=== PATIENT | male | born 1935 | race Caucasian/White ===

== ENCOUNTER → 2018-04-30 | Outpatient (CLI) | payer OTHER ==
[~2018-04-30] MED LIST: IOHEXOL 350mgI/ML (OMNIPAQUE) 150 ML BTL IV ONE
== END ==
LOC: FIMAGING 13:59
PROVIDERS: ATTEND Internal Medicine Infectious Disease
DX: I73.9 Peripheral vascular disease, unspecified (principal); I70.209 Unspecified atherosclerosis of native arteries of extremities, unspecified extremity
CPT/HCPCS: 75635; Q9967; 82565-PO

== ENCOUNTER 2018-05-15 08:11 | Inpatient (IN) | payer OTHER ==
[2018-05-15] MEDS ORDERED: ONDANSETRON 4 MG/2 ML VIAL IVP PRN (12:51)
[2018-05-15] MEDS ORDERED: ACETAMINOPHEN 325 MG TAB PO PRN (12:51)
[2018-05-15] MEDS ORDERED: ONDANSETRON DISINTEGRATING 4 MG TAB PO PRN (12:51)
--- NOTE | 2018-05-15 14:17 | PDGENHP ---
History and Physical - Chief Complaint Peripheral vascular disease, RLE swelling and pain - History of Present Illness HPI: This is a 82 y/o male with history of CABG x 2, stents x 9, atrial fibrillation, ischemic cardiomyopathy, pacemaker and peripheral vascular disease presenting from Dr. Shaun Holman office with months worth of right lower extremity leg swelling and pain more so than left lower extremity. He was seen mid-April by wound MD Dr. Holden Bravo for this issue: RLE painful to elevate and difficult to ambulate. Doppler of arteries on the right side indicate monophasic pulse likely proximal obstruction, LAUREN abnormal BLE 0.72 and 0.74, CTA with runoff reveal 70% stenosis in the proximal left external iliac artery, 60% stenosis proximal SFA with patent trifurcation vessels to the ankle and left 50% mid SFA stenosis, occlusion of the anterior tibilar artery and probable occlusion of the mid-posterior tibial artery with reconstitution distally. He denies chest pains, palpitations, nausea, vomiting, fevers, chills, diarrhea. Endorses 6-week productive cough, sarmiento sputum. Recently treated with azithromycin but continues to experience productive cough. He is being admitted for observation and upcoming angioplasty procedure with Dr. Wang. Past Medical History 1. Atrial fibrillation 2. CAD s/p PCI 3. Hyperlipidemia 4. Ischemic cardiomyopathy 5. Peripheral vascular disease 6. Severe neuropathy 7. Myocardial infarctions (1987, 1994) Past Surgical History 1. Pacemaker 2. s/p CABG x 2, S/p PCI x 9 3. MOHS melanoma right ear Social 1. Lives independently at [facility]. 2. Denies illicit drug use. Drinks 2 beers/day. Smokes 5 cigarettes/day. History Information - Allergies/Home Medication List Allergies/Adverse Reactions: duloxetine HCl [From Cymbalta] Allergy (Mild, Verified 06/10/10 14:21) lansoprazole [From Prevacid] Allergy (Mild, Verified 06/10/10 14:21) Other-Enter Comments cephalexin [Cephalexin] Allergy (Verified 06/10/10 14:21) clindamycin Allergy (Verified 06/10/10 14:21) dabigatran etexilate mesylate [From Pradaxa] Allergy (Verified 06/17/10 13:37) CP,H/A,LEG SWELLING fenofibrate nanocrystallized [From Tricor] Allergy (Verified 06/10/10 14:25) Other-Enter Comments fenofibrate,micronized [From Tricor] Allergy (Verified 06/10/10 14:25) Other-Enter Comments iron [Iron] Allergy (Verified 04/27/10 22:41) lovastatin [From Mevacor] Allergy (Verified 06/10/10 14:25) Other-Enter Comments niacin [Niacin] Allergy (Verified 06/10/10 14:24) Ywsnlyp-Zkd-Nxg Reductase Inhibitor Allergy (Verified 06/10/10 14:24) Other-Enter Comments warfarin [Warfarin] Allergy (Verified 06/10/10 14:24) Home Medications: Clopidogrel Bisulfate [Plavix (*)] 75 mg PO DAILY 09/10/12 [Last Taken 05/15/18] Herbals/Supplements -Info Only 1 each PO HS 09/10/12 [Last Taken Unknown] Albuterol [Proventil Inhaler HFA (*)] 3 puffs IH Q4-6PRN PRN 05/15/18 [Last Taken Unknown] Ascorbic Acid [Vitamin C 500 mg (*)] 500 mg PO DAILY 05/15/18 [Last Taken ] Aspirin [Aspirin 81mg (*)] 81 mg PO BID 05/15/18 [Last Taken 05/15/18] Azithromycin 250 mg PO DAILY 05/15/18 [Last Taken 05/15/18] Bumetanide [Bumex (*)] 1 mg PO DAILY 05/15/18 [Last Taken 05/15/18] Calcium Carb W/Vit D [Calcium Carb W/Vit D 500/200 (*)] 1,000 mg PO DAILY [Last Taken 05/15/18] Cyanocobalamin [Vitamin B12 (*)] 500 mcg PO DAILY 05/15/18 [Last Taken 05/15/18] Metoprolol Succinate Xr [Toprol Xl 25 mg (*)] 25 mg PO DAILY 05/15/18 [Last Taken 05/15/18] Multivitamins [Multivitamin (*)] 1 each PO DAILY 05/15/18 [Last Taken 05/15/18] I have personally reviewed and updated: family history, medical history, social history, surgical history Past Medical History: See HPI list - Surgical History Additional surgical history: See HPI list - Family History Additional family history: Brothers and sisters: 2 of a stroke, 5 have heart disease - Social History Smoking Status: Current every day smoker Alcohol Use: Occasionally Drug Use: None Review of Systems Review of Systems: ROS: 10pt was reviewed & negative except for what was stated in HPI & below Physical Exam Physical Exam: Lab data pending. Case discussed with admitting physician, Dr. Judson Adam. Temp Pulse Resp BP Pulse Ox 36.6 C 70 16 116/63 92 05/15/18 12:59 05/15/18 12:59 05/15/18 12:59 05/15/18 12:59 05/15/18 12:59 Constitutional: no apparent distress, appears nourished, not in pain Eyes: PERRL, anicteric sclera, EOMI Ears, Nose, Mouth, Throat: moist mucous membranes, hearing normal, ears appear normal, no oral mucosal ulcers Cardiovascular: irregularly irregular, edema Respiratory: reduced air movement Gastrointestinal: normoactive bowel sounds, soft, non-tender abdomen, other ( Right sided protuding hernia; fat-filled) Genitourinary: no bladder fullness, no bladder tenderness Skin: abrasion, erythema (RLE; odorous), rash Musculoskeletal: pain with ROM (RLE) Neurologic: AAOx3, numbness, CN II-XII Intact Psychiatric: interacting appropriately, not anxious, not encephalopathic, thought process linear Lymph, Heme, Immunologic: no cervical LAD, no supraclavicular LAD Lab Data & Imaging Review 05/15/18 15:10 05/15/18 15:10 Assessment & Plan Plan: This is a 82 y/o male with history of ischemic cardiomyopathy, a-fib, pacemaker , CAD s/p CABG x 2 and [address] Shaun Holman office with severe peripheral vascular disease ailing his right lower extremity more so than his left lower extremity. He is to have an angioplasty by Dr. Wang. 1. Peripheral vascular disease -Wound care consult -I spoke to Dr. Wang; possible angioplasty tomorrow - NPO tonight at midnight -Refuses statins d/t poor reactions -INR: 1.20 2. A-Fib -He refuses AC d/t poor reactions; continue ASA and Plavix 3. CHF: Last ECHO July 2017 performed at [facility] revealed moderate pulmonary HTN, mild-moderate TR, moderate MR, LAE, KENNETH, estimated RVSP 47 mmHg, EF 40-45%. -On metoprolol, bumex. Recommend HUGO inhibitor. Considering initiating after angioplasty and renally cleared contrast to reduce toxicity -BUN/Cr: 17.1 4. Cellulitis: Denies hx of MRSA. -Risk factor PVD and open wound. -Initiated Clindamycin, will be on tele and pulse ox monitoring d/t possible allergy. He cannot remember his allergy. In records, it states angina and diarrhea. -Wound care consult 5. Cough: on albuterol. Continue to monitor. Possible smoker's cough. Afebrile , mild leukocytosis (10.13) however he does have cellulitis. Diet: Cardiac, NPO at midnight tonight VTE ppx: ASA, Plavix, Lovenox subq Code: DNR Dispo: Admit to obs
[2018-05-15] MEDS ORDERED: ALBUTEROL 60 PUFFS/8 GM MDI IH PRN (14:20)
[2018-05-15 15:38] LABS: PLATELET COUNT 289 10^3/uL (150-400)
[2018-05-15 15:42] LABS: INR 1.2 (0.83-1.16); PROTIME(PATIENT) 15.4 SEC (12.0-15.0)
--- NOTE | 2018-05-15 15:54 | HOSPPROG ---
Hospitalist Progress Note Assessment/Plan: Patient seen, examined and discussed with Suma Looney. I agree with her H&P. Admitted from Dr Holman' office for PAD needing angioplasty. He tried to clip the nail on his L small toe and caused some bleeding. RLE with erythema extending to upper cates, desquamated, markedly scaly foot LLE with blood over foot A/P: 1. Severe PAD with cellulitis - start clinda (place on tele and pulseOx given possible allergy) - needs angioplasty - possible tomorrow 2. antibiotic allergies - seems like a true allergy to Keflex; does not recall clinda allergy 3. CAD s/p CABG, PCI; ischemic cardiomyopathy with recovered EF - cont metop, not on statin or lisinopril 4. a-fib - declined AC in the past; cont asa/plavix, metop Objective: Vital Signs Temp Pulse Resp BP Pulse Ox 36.6 C 70 16 116/63 92 05/15/18 12:59 05/15/18 12:59 05/15/18 12:59 05/15/18 12:59 05/15/18 12:59 ICD10 Worksheet Patient Problems: Problems Problem Status Onset CAD - Coronary arteriosclerosis Active Hyperlipidemia Active Smoker Active Bradycardia Active Implantation of intravenous dual chamber permanent pacemaker Active Atrial fibrillation and flutter Active
[2018-05-15] MEDS: CLINDAMYCIN 600 MG/DEXTROSE 50 ML IV SCH (17:48)
--- NOTE | 2018-05-15 18:06 | GHP ---
[f rep st] HISTORY AND PHYSICAL DATE OF ADMISSION: 05/15/2018 CHIEF COMPLAINT: Bilateral lower extremity wounds. HISTORY OF PRESENT ILLNESS: The patient is an 82-year-old male with a history of peripheral vascular disease, who presented to our office approximately 1 week ago for complaints of worsening wounds on his bilateral lower extremities, right worse than left. He was sent for ABIs, which were abnormal at 0.72 and 0.74. He also underwent a CT angio abdomen with runoff that revealed 70% stenosis in the proximal left external iliac artery and a 60% stenosis of the proximal SFA, with patent trifurcation vessels at the ankle. Both of these arteries are amenable to angioplasty. The patient reports pain in his right lower extremity that makes it difficult to ambulate. He denies fever, chills, chest pains, and heart palpitations. Of note, the patient was recently treated for pneumonia and is on day 5 of azithromycin. He denies a fever, but endorses a persistent productive cough. PAST MEDICAL HISTORY: History of myocardial infarctions, peripheral vascular disease, neuropathy, diabetes, ischemic cardiomyopathy, hyperlipidemia, coronary artery disease, atrial fibrillation. 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 SOCIAL HISTORY: The patient is a current smoker and drinks 2 alcoholic beverages per day. He denies recreational drug use. He lives independently at [facility]. REVIEW OF SYSTEMS: Ten-point review of systems was performed and is negative, aside from what is in the HPI. MEDICATIONS: Plavix, albuterol inhaler, ascorbic acid, aspirin 81 mg, azithromycin 250 mg, Bumex, calcium carbonate with vitamin D, vitamin B12, metoprolol succinate XR, multivitamin. ALLERGIES: Cymbalta, Prevacid, Keflex, clindamycin, Pradaxa, Tricor, lovastatin , niacin, Coumadin. PHYSICAL EXAM: GENERAL: Well-appearing, well-dressed elderly male in no acute distress. HEENT: Normocephalic, atraumatic. No gross hearing deficits. Mucous membranes are moist, PERRLA, no scleral icterus. CARDIOVASCULAR: Irregularly irregular, bilateral lower extremity edema. RESPIRATORY: Crackles at bilateral bases, clear otherwise. ABDOMEN: Soft, nontender, nondistended. Normoactive bowel sounds. EXTREMITIES: Right lower extremity appears with 3+ edema. It is erythematous extending from foot up to the upper cates. Multiple areas of desquamation, faint pedal pulses. Left lower extremity: 1+ edema. Mildly erythematous in the foot. Faint pedal pulses. Left great toe appears with a scab. NEUROLOGIC: Alert and oriented x3. PSYCHIATRIC: Appropriate mood and affect. IMPRESSION AND PLAN: The patient is an 82-year-old male with severe peripheral vascular disease, with cellulitis in his right lower extremity and extensive wounds. The plan is to admit him for possible angioplasty of his right SFA tomorrow in Interventional Radiology. He is n.p.o. He may continue his aspirin and Plavix until the time of his procedure. Given his recent diagnosis of pneumonia and a persistent cough, there is a chance that his procedure will need to be delayed until he is healthier. At some point, he will also need an angioplasty of his left external iliac artery; however, it is unlikely that these procedures can happen at the same time. We will prioritize the right SFA , given the worsening wounds on the patient's right lower extremity. We have discussed all risks and options and the patient wishes to proceed with the plan. /[id number]/MODL MTDD
[2018-05-15] MEDS ORDERED: ENOXAPARIN 40 MG/0.4 ML SYR SC SCH ×2 (21:00)
[2018-05-15] MEDS: FISH OIL 1200 MG PO SCH (22:17)
[2018-05-15] MEDS: ASPIRIN 81 MG CHEWABLE TAB PO SCH (22:18)
[2018-05-15] MEDS: METOPROLOL SUCCINATE XR 25 MG TAB PO SCH (22:18)
[2018-05-16] MEDS: CLINDAMYCIN 600 MG/DEXTROSE 50 ML IV SCH ×4 (00:32→21:52)
--- NOTE | 2018-05-16 08:58 | HOSPPROG ---
Hospitalist Progress Note Assessment/Plan: # severe PAD with cellulitis - cont clinda D#2 - needs angioplasty - today by IR # antibiotic allergies - seems like a true allergy to Keflex; does not recall clinda allergy, but currently tolerating # chronic LE wounds - will need wound care and debridement, possibly bedside - cont diuretics # CAD s/p CABG, PCI; ischemic cardiomyopathy with recovered EF - cont metop, not on statin or lisinopril # a-fib - declined AC in the past - cont asa/plavix, metop Subjective: leg feels less swollen today Objective: Vital Signs Temp Pulse Resp BP Pulse Ox 36.9 C 71 18 108/56 L 93 05/16/18 07:26 05/16/18 07:26 05/16/18 07:26 05/16/18 07:26 05/16/18 07:26 Laboratory Results 05/16/18 05:30 05/16/18 05:30 05/15/18 05/16/18 05/17/18 05:59 05:59 05:59 Intake Total 780 Balance 780 PT 15.4 SEC (12.0-15.0) H 05/15/18 15:10 INR 1.20 (0.83-1.16) H 05/15/18 15:10 ECG reviewed CXR personally reviewed - Physical Exam Constitutional: no apparent distress, appears nourished Cardiovascular: regular rate and rhythym, systolic murmur, No irregularly irregular Respiratory: no respiratory distress, no rales or rhonchi, clear to auscultation Gastrointestinal: normoactive bowel sounds, soft, non-tender abdomen, no palpable masses Musculoskeletal: other (slightly improved erythema on R leg; s till some desquamation and scaling) ICD10 Worksheet Patient Problems: Problems Problem Status Onset CAD - Coronary arteriosclerosis Active Hyperlipidemia Active Smoker Active Bradycardia Active Implantation of intravenous dual chamber permanent pacemaker Active Atrial fibrillation and flutter Active
--- NOTE | 2018-05-16 09:04 | WOCRNPDOC ---
PANCHO Advanced Assessment Note - Skin Integrity Problem, Advanced Assess Right Lower Leg Dressing Type: Gauze, Kerlix Dressing Description: Clean/Dry, Intact Exudate Amount: None Integumentary Issue Intervention: Dressing Changed Fifi Wound Tissue: Erythema, Xerotic, Anhidrotic, Rubor (non dependent), Altered Sensitivity, Crusted, Hypertrophic, Lichenification Wound Bed Constitution: Granulation Tissue (80%), Adhered Slough (20%) Wound Edges: Attached, Irregular Site Odor: Slight Site Measurement - Head-to-Toe Length X Width X Depth (cm): [id number] Extremity Temperature: Warm (great toes on feet were cool) Peripheral Edema Location & Description: 4+ bilateral feet Skin Integrity Problem Comment: Patient admitted yesterday for extensive right lower extremity wounds and severe hyperkeratosis. He has an open area on the right gaiter area that is not very deep nor painful. His ankle and foot area covered with large chunks of dried skin that are thick and callous-like. There are multiple deep full thickness fissures spidering throughout. Plan is to keep gaiter wound with moist to dry dressing changes BID until post angioplasty. Once blood flow has been verified then the areas of hyperkeratosis may be addressed. Of note patient has a raised itchy red rash on his medial left knee that he reports is from using marijuana salve on his right foot that causes an "allergic" reaction a few months ago and has worsened over time. Wound care will follow. Dr. Holman and Heather Fairbanks GROUP PRACTICE PEDIATRICIAN in room. Ethan HAYDEN also in room for care.
[2018-05-16] MEDS ORDERED: MEPERIDINE 25 MG/ML SYR IVP PRN (11:05)
[2018-05-16] MEDS ORDERED: MIDAZOLAM 2 MG/2 ML VIAL IVP PRN (11:05)
[2018-05-16] MEDS ORDERED: NALOXONE HCL 0.4 MG/ML INJ IVP PRN ×2 (11:05→13:24)
[2018-05-16] MEDS ORDERED: FLUMAZENIL 0.5 MG/5 ML MDV IVP PRN (11:05)
[2018-05-16] MEDS ORDERED: fentaNYL 100 MCG/2 ML INJ IVP PRN ×2 (11:05→13:24)
[2018-05-16] MEDS ORDERED: HEPARIN 10,000 UNIT/10 ML MDV (1,000 UNIT/ML) IVP PRN (11:05)
[2018-05-16] MEDS ORDERED: PROTAMINE SULFATE 50 MG/5 ML VIAL IVP PRN (11:05)
[2018-05-16] MEDS ORDERED: ALTEPLASE 2 MG VIAL IVP PRN (11:05)
[2018-05-16] MEDS ORDERED: PROPOFOL 200 MG/20 ML VIAL ONE (11:09)
[2018-05-16] MEDS ORDERED: fentaNYL 100 MCG/2 ML INJ ONE (11:09)
[2018-05-16] MEDS ORDERED: LIDOCAINE 2% 100 MG/5 ML SYR ONE (11:10)
[2018-05-16] MEDS ORDERED: IOPAMIDOL (ISOVUE-300) 100 ML BTL ONE ×2 (11:11→13:43)
[2018-05-16] MEDS ORDERED: NS 1,000 ML IV SCH (11:15)
--- NOTE | 2018-05-16 11:17 | PDANEPAE ---
ANE Past Medical History - Pulmonary History Hx Oxygen in Use at Home: No Hx Sleep Apnea: Yes - Endocrine History Hx Diabetes: No - Chronic Pain History Chronic Pain: Yes ANE Review of Systems Review of Systems: ANE Patient History - Allergies Allergies/Adverse Reactions: duloxetine HCl [From Cymbalta] Allergy (Mild, Verified 06/10/10 14:21) lansoprazole [From Prevacid] Allergy (Mild, Verified 06/10/10 14:21) Other-Enter Comments cephalexin [Cephalexin] Allergy (Verified 06/10/10 14:21) clindamycin Allergy (Verified 06/10/10 14:21) dabigatran etexilate mesylate [From Pradaxa] Allergy (Verified 06/17/10 13:37) CP,H/A,LEG SWELLING fenofibrate nanocrystallized [From Tricor] Allergy (Verified 06/10/10 14:25) Other-Enter Comments fenofibrate,micronized [From Tricor] Allergy (Verified 06/10/10 14:25) Other-Enter Comments iron [Iron] Allergy (Verified 04/27/10 22:41) lovastatin [From Mevacor] Allergy (Verified 06/10/10 14:25) Other-Enter Comments niacin [Niacin] Allergy (Verified 06/10/10 14:24) Mkkekmh-Wqb-Kyz Reductase Inhibitor Allergy (Verified 06/10/10 14:24) Other-Enter Comments warfarin [Warfarin] Allergy (Verified 06/10/10 14:24) - Home Medications Home Medications: Clopidogrel Bisulfate [Plavix (*)] 75 mg PO DAILY 09/10/12 [Last Taken 05/15/18] Herbals/Supplements -Info Only 1 each PO HS 09/10/12 [Last Taken Unknown] Albuterol [Proventil Inhaler HFA (*)] 3 puffs IH Q4-6PRN PRN 05/15/18 [Last Taken Unknown] Ascorbic Acid [Vitamin C 500 mg (*)] 500 mg PO DAILY 05/15/18 [Last Taken ] Aspirin [Aspirin 81mg (*)] 81 mg PO BID 05/15/18 [Last Taken 05/15/18] Azithromycin 250 mg PO DAILY 05/15/18 [Last Taken 05/15/18] Bumetanide [Bumex (*)] 1 mg PO DAILY 05/15/18 [Last Taken 05/15/18] Calcium Carb W/Vit D [Calcium Carb W/Vit D 500/200 (*)] 1,000 mg PO DAILY [Last Taken 05/15/18] Cyanocobalamin [Vitamin B12 (*)] 500 mcg PO DAILY 05/15/18 [Last Taken 05/15/18] Metoprolol Succinate Xr [Toprol Xl 25 mg (*)] 25 mg PO HS 05/15/18 [Last Taken 05/15/18] Multivitamins [Multivitamin (*)] 1 each PO DAILY 05/15/18 [Last Taken 05/15/18] - Smoking Hx Smoking Status: Current every day smoker - Alcohol Use Alcohol Use: Occasionally ANE Labs/Vital Signs - Labs Result Diagrams: 05/16/18 05:30 05/16/18 05:30 - Vital Signs Blood Pressure: 108/56 Heart Rate: 71 Respiratory Rate: 18 O2 Sat (%): 93 Height: 170.18 cm Weight: 74.5 kg ANE Physical Exam - Airway Neck exam: decreased ROM Mallampati Score: Class 3 Mouth exam: dentures - Pulmonary Pulmonary: reduced air movement, inspiratory crackles - Cardiovascular Cardiovascular: other (paced) ANE Anesthesia Plan Anesthesia Plan: GA w LMA
--- NOTE | 2018-05-16 12:03 | SOAPPROG ---
SOAP Progress Note Assessment/Plan: Assessment: 82 y/o M admitted for bilateral lower extremity wounds Plan for R SFA angioplasty in IR today S: did not sleep well last night. No other complaints. O: Alert Afebrile VSS RRR No increased WOB RLE: 2+ edema present, dependent rubor, erythematous from upper cates to foot. Foot has extensive crusty lichenification LLE: 1+ edema, mildly erythematous Poor pedal pulses bilaterally 05/16/18 11:58 Objective: Vital Signs Temp Pulse Resp BP Pulse Ox 36.9 C 71 18 108/56 L 93 05/16/18 07:26 05/16/18 11:16 05/16/18 11:16 05/16/18 11:16 05/16/18 11:16 Laboratory Results 05/16/18 05:30 05/16/18 05:30 05/15/18 05/16/18 05/17/18 05:59 05:59 05:59 Intake Total 780 Balance 780 PT 15.4 SEC (12.0-15.0) H 05/15/18 15:10 INR 1.20 (0.83-1.16) H 05/15/18 15:10 ICD10 Worksheet Patient Problems: Problems Problem Status Onset Atrial fibrillation and flutter Active Bradycardia Active CAD - Coronary arteriosclerosis Active Hyperlipidemia Active Implantation of intravenous dual chamber permanent pacemaker Active Smoker Active
[2018-05-16] MEDS ORDERED: ALBUTEROL 3 ML DEYVIAL IH PRN (13:24)
--- NOTE | 2018-05-16 13:26 | POSTANESTH ---
Post Anesthetic Evaluation Cardiovascular Status: Similar to Pre-Op Cond Respiratory Status: Similar to Pre-op Cond. Level of Consciousness/Mental Status: Mildly Sleepy, Arousable Pain Control: Adequate, Prn Tx Ordered Nausea/Vomiting Control: Adequate, Prn Tx Ordered Complications Possibly Related to Anesthesia: None Noted
[2018-05-16] MEDS: CLOPIDOGREL BISULFATE 75 MG TAB PO SCH ×2 (15:33→16:30)
[2018-05-16] MEDS: BUMETANIDE 1 MG TAB PO SCH ×2 (15:34→16:29)
[2018-05-16] MEDS: CYANO/VITAMIN B12 1000 MCG TAB PO SCH ×2 (15:34→16:31)
[2018-05-16] MEDS: CALCIUM CARB W/VIT D 500 MG TAB PO SCH ×2 (15:34→16:30)
[2018-05-16] MEDS: MULTIVITAMINS 1 EACH TAB PO SCH (15:34)
[2018-05-16] MEDS: ASCORBIC ACID 500 MG TAB PO SCH ×2 (15:36→16:28)
[2018-05-16] MEDS: ASPIRIN 81 MG CHEWABLE TAB PO SCH ×3 (15:36→21:52)
--- NOTE | 2018-05-16 16:37 | ASMTCMCOM ---
CM Note CM Note Notes: Met with pt and dtr Grazyna, pt states that he lives at [facility] in [place] and has [facility] for wound care. PT cleared pt for home, OT pending DC Plan: TBD Date Signed: 05/16/2018 04:33 PM Electronically Signed By:Mouna Ramsey RN
--- NOTE | 2018-05-16 19:53 | CPEKG ---
Test Reason : OPEN Blood Pressure : / mmHG Vent. Rate : 070 BPM Atrial Rate : 071 BPM P-R Int : 055 ms QRS Dur : 197 ms QT Int : 501 ms P-R-T Axes : 000 -52 172 degrees QTc Int : 541 ms Ventricular-paced complexes Confirmed by Randy Santos ([id number]) on 05/16/2018 7:52:58 PM Referred By: Javy Adam Confirmed By:Randy Santos
[2018-05-16] MEDS: METOPROLOL SUCCINATE XR 25 MG TAB PO SCH (21:52)
[2018-05-16] MEDS: FISH OIL 1200 MG PO SCH (21:53)
[2018-05-17] MEDS: CLINDAMYCIN 600 MG/DEXTROSE 50 ML IV SCH (06:37)
--- NOTE | 2018-05-17 08:23 | PDMN ---
Medical Necessity Medical necessity: Pt meets IP criteria as of 05/16/2018 per and MCG MG-VAS ( Vascular Disease GRG); los > 2 mn for ongoing tx and management of severe RLE PAD with cellulitis; requiring SFA angioplasty, wound care, IV ABX, and management of chronic conditions including afib, ischemic cardiomyopathy, pacemaker, severe neuropathy, myocardial infarctions and hyperlipidemia.
[2018-05-17] MEDS: ASCORBIC ACID 500 MG TAB PO SCH (08:59)
[2018-05-17] MEDS: CALCIUM CARB W/VIT D 500 MG TAB PO SCH (08:59)
[2018-05-17] MEDS: MULTIVITAMINS 1 EACH TAB PO SCH (08:59)
[2018-05-17] MEDS: ASPIRIN 81 MG CHEWABLE TAB PO SCH (09:01)
[2018-05-17] MEDS: CYANO/VITAMIN B12 1000 MCG TAB PO SCH (09:01)
[2018-05-17] MEDS: CLOPIDOGREL BISULFATE 75 MG TAB PO SCH (09:01)
[2018-05-17] MEDS: BUMETANIDE 1 MG TAB PO SCH (09:01)
[2018-05-17] MEDS ORDERED: CALAMINE/ZINC OXIDE 1 EA BANDAGE (UNNA BOOT) TP ONE (09:52)
--- NOTE | 2018-05-17 09:56 | SOAPPROG ---
SOAP Progress Note Assessment/Plan: Assessment: 82 y/o M admitted for bilateral lower extremity wounds S/p R SFA and L EIA angioplasties in IR yesterday Plan for unna boot application today. Ok to be discharged from our perspective. Recommend lower extremity elevation and support stockings. Follow up in Dr. Holman' office on Sunday for unna boot change. S: No complaints. Ambulating without difficulty. O: Alert Afebrile VSS No increased WOB RLE: 2+ edema present, dependent rubor, erythematous from upper cates to foot. Foot has extensive crusty lichenification LLE: 1+ edema, mildly erythematous + pedal pulses bilaterally 05/17/18 09:54 Objective: Vital Signs Temp Pulse Resp BP Pulse Ox 36.7 C 75 12 113/53 L 92 05/17/18 08:00 05/17/18 08:00 05/17/18 08:00 05/17/18 08:00 05/17/18 08:00 Laboratory Results 05/16/18 05:30 05/17/18 05:05 05/16/18 05/17/18 05/18/18 05:59 05:59 05:59 Intake Total 780 Output Total 300 Balance 780 -300 PT 15.4 SEC (12.0-15.0) H 05/15/18 15:10 INR 1.20 (0.83-1.16) H 05/15/18 15:10 ICD10 Worksheet Patient Problems: Problems Problem Status Onset Atrial fibrillation and flutter Active Bradycardia Active CAD - Coronary arteriosclerosis Active Hyperlipidemia Active Implantation of intravenous dual chamber permanent pacemaker Active Smoker Active
--- NOTE | 2018-05-17 11:36 | PDIAF ---
- Diagnosis Diagnosis: R LE wounds, PAD Code Status: Do Not Resuscitate - Medication Management Discharge Medications: electronically signed and located in the Home Medication List. - Orders Services needed: Home Care, Registered Nurse, Certified Hearing Aid Assistant Home Care Face to Face: I certify that this patient was under my care and that I had the required [id number] encounter meeting the encounter requirements on the discharge day. My findings support the fact that the patient is homebound as defined in Home Care Face to Face Continued: CMS Chapter 7 Medicare Benefits Manual 30.1.1 , The condition of the patient is such that there exists a normal inability to leave home and consequently, leaving home would require a considerable and taxing effort. Diet Recommendation: no restrictions on diet Additional Instructions: Elevate legs as much as possible. Wear support stocking on legs during the day. Continue aspirin and plavix. Keep unna boot on. Follow up in Dr. Holman' office on Sunday for an unna boot exchange. Call with fever, chills or worsening symptoms. - Follow Up Care Current Providers and Referrals: TALON HOOKS [Primary Care Provider] - Shaun Holman MD [Medical Doctor] - 05/20/18
--- NOTE | 2018-05-17 12:10 | ASMTLACE ---
LACE Length of stay for Answers: 2 days current admission Acuity / Level of Answers: No Care: Did the patient have an inpatient admission? Comorbidities - select Answers: Coronary Artery Disease all that apply Diabetes (uncontrolled or controlled) Peripheral vascular disease Previous myocardial infarction Other Notes: AFib; HLD # of Emergency department Answers: 0 visits in the last 6 months Score: 8 Date Signed: 05/17/2018 12:09 PM Electronically Signed By:Mouna Ramsey RN
--- NOTE | 2018-05-17 12:26 | GDS ---
[f rep st] DISCHARGE SUMMARY DIAGNOSES: 1. Right lower extremity wounds. 2. Peripheral artery disease status post angioplasty by Interventional Radiology. 3. Antibiotic allergy to Keflex. 4. Coronary artery disease, status post coronary artery bypass graft as well as percutaneous coronar y intervention. 5. Ischemic cardiomyopathy with a recovered ejection fraction. 6. Atrial fibrillation. Currently on aspirin, Plavix, and metoprolol. HOSPITAL COURSE: This is an 82-year-old man who was admitted from Dr. Holman' office for an angioplas ty. Recent evaluation had revealed severe peripheral arterial disease. He had chronic nonhealing wo unds in his right lower extremity. Because of this, he underwent angioplasty on 05/16/2018, by Dr. Kassandra blair, who performed an angioplasty of the right femoral artery, the tibioperoneal trunk, and the left e xternal iliac artery. She felt as though she had good results following this procedure. He has been treated for a secondary cellulitis with clindamycin as he has a true allergy to Keflex. He has had some improvement of his overall erythema. He is safe to be switched to oral antibiotics at this poin t. He is followed by Dr. Holman for wound care. He is placed in a Unna boot on the day of discharge, General Surgery will provide home care instructions on his wound care. He will follow up with Dr. Crys granger 3 days after discharge, in his clinic. He was given this appointment. The patient did have a l isted allergy to clindamycin, though it is not clear that this is a true allergy. He has tolerated i t well as an inpatient. Give him at least another 7 days, but total duration to be determined by Dr. Holman as an outpatient. DISPOSITION: He is discharged home in stable condition with home care for wound care assistance. BILLING: I spent more than 30 minutes on the day of discharge coordinating care. /[id number]/MODL
[2018-05-17 13:12] VITALS: BP 113/53
== END 2018-05-17 14:13 | disposition home or self-care (01) | DRG 253 ==
LOC: INTOOBSV 12:33 → F3E 12:33 → OBSVTOIN 05-16 09:00
PROVIDERS: ADMIT Student in an Organized Health Care Education/Training Program; ATTEND Student in an Organized Health Care Education/Training Program
DX: E11.51 Type 2 diabetes mellitus with diabetic peripheral angiopathy without gangrene (principal); L97.919 Non-pressure chronic ulcer of unspecified part of right lower leg with unspecified severity; L03.115 Cellulitis of right lower limb; E11.40 Type 2 diabetes mellitus with diabetic neuropathy, unspecified; I25.10 Atherosclerotic heart disease of native coronary artery without angina pectoris; I25.5 Ischemic cardiomyopathy; I48.91 Unspecified atrial fibrillation; E78.5 Hyperlipidemia, unspecified; I25.2 Old myocardial infarction; Z88.1 Allergy status to other antibiotic agents; Z72.0 Tobacco use; Z95.1 Presence of aortocoronary bypass graft; Z95.5 Presence of coronary angioplasty implant and graft; Z79.82 Long term (current) use of aspirin
CPT/HCPCS: 97161-GP; 97165-GO; C1725; C1769; C1892; C1894; G0378; J1644; J2001; J2704; J3010; Q9967

== ENCOUNTER 2018-08-07 15:42 | Inpatient (IN) | payer OTHER ==
--- NOTE | 2018-08-07 17:01 | GHP ---
[f rep st] HISTORY AND PHYSICAL DATE OF ADMISSION: 08/07/2018 CHIEF COMPLAINT: Right lower extremity cellulitis. HISTORY OF PRESENT ILLNESS: Jase is an 82-year-old male with significant circumferential venous sta sis ulcers of his right lower extremity. He is status post right SFA and left EIA angioplasties in I R 05/16/2018. He has been following up in our office weekly for wound care and Unna boot management. The patient presented today with increased redness and swelling of his right lower extremity. He a lso has increased pain and pruritus. He denies fever and chills. PAST MEDICAL HISTORY: High blood pressure, [facility]. PAST SURGICAL HISTORY: Heart surgery, iliac stent placement, superficial femoral artery stent placem ent. MEDICATIONS: Acyclovir 400 mg, Anoro Ellipta 62.5/25 mcg per actuation inhaler, baby aspirin, bumeta nide, calcium 500 plus D 500, CoQ10 100 mg, enalapril 2.5 mg, fish oil, gabapentin 300 mg, hydrocodon e/acetaminophen 5/325 mg tablets as needed for pain, metoprolol succinate 25 mg, multivitamin, Plavix 75 mg, tramadol 50 mg, vitamin C 500 mg, vitamin B complex, Zetia 10 mg. ALLERGIES: Cephalexin, clindamycin, Coumadin, Crestor, Cymbalta, iron tablets, Lasix, Lipitor, Jojo a, Pradaxa, Pravachol, Zocor. SOCIAL HISTORY: This patient is a current smoker. REVIEW OF SYSTEMS: Ten-point review of systems is performed and is negative, aside from what is in t he HPI. PHYSICAL EXAM: GENERAL: Well-appearing 82-year-old male in no acute distress. HEENT: Normocephali c, atraumatic. No gross hearing deficits. Mucous membranes moist. PERRLA. PSYCHIATRIC: Appropria te mood and affect. NEUROLOGIC: Alert and oriented. CARDIAC: Regular rate and rhythm. No clicks, no murmurs or rubs. CHEST: Clear to auscultation bilaterally. No crackles, rales, or rhonchi. AB DOMEN: Soft, nontender, nondistended. RIGHT LOWER EXTREMITY: Edema and redness present circumferen tially extending from the knee down to the ankle. Residual crusting and fissuring of the toes on the dorsal aspect of the foot is present. Strong pedal pulses, right side. INTEGUMENTARY: Multiple op en venous ulcers are present throughout the right calf and cates with serous drainage. IMPRESSION AND PLAN: This is an 82-year-old male with a history of peripheral vascular disease and v enous stasis ulcers who is status post SFA and EIA angioplasties. The patient was healing well with the Unna boot treatment until approximately 1 week ago when he began to experience increased redness and swelling. He does not have a fever or chills. He has good pulses. The plan is to admit him to the Medicine service. He will need an Infectious Disease consult and arterial studies for further ev aluation of the blood supply to his foot. /[id number]/MODL
[2018-08-07] MEDS ORDERED: VANCOMYCIN HCL/NORMAL SALINE 250 ML IV SCH (19:39)
[2018-08-07] MEDS ORDERED: VANCOMYCIN HCL/NORMAL SALINE 250 ML IV ONE (19:42)
[2018-08-07] MEDS ORDERED: oxyCODONE IR 5 MG TAB PO PRN (19:46)
[2018-08-07] MEDS ORDERED: ONDANSETRON 4 MG/2 ML VIAL IVP PRN (19:46)
[2018-08-07] MEDS ORDERED: ACETAMINOPHEN 325 MG TAB PO PRN (19:46)
[2018-08-07] MEDS ORDERED: traMADol 50 MG TAB PO PRN (19:46)
[2018-08-07 20:06] LABS: PLATELET COUNT 221 10^3/uL (150-400)
[2018-08-07] MEDS: ASPIRIN 81 MG CHEWABLE TAB PO SCH (20:21)
--- NOTE | 2018-08-07 21:27 | GHP ---
[f rep st] HISTORY AND PHYSICAL DATE OF ADMISSION: 08/07/2018 CHIEF COMPLAINT: Right lower extremity wound with cellulitis. HISTORY: The patient is an 82-year-old male, being directly admitted from Dr. Shaun Holman' office. He has a known history of right lower extremity venous stasis ulcer. He was admitted in May a nd had angioplasty to the lower extremity arteries in Interventional Radiology. He follows at Dr. Crys granger' office for wound care. He was in an Unna boot. He is now presenting with increased redness an d swelling of the right lower extremity for the last [address] Holman prescribed an antibiotic, whi ch was doxycycline. The patient read the side effect profile, however, and got very scared of the po tential side effects and never took the antibiotic. Wound care was being done by home health, but [facility] discontinued July 17. Since then, he has been getting minimal wound care. He is not re ally able to change any dressings on his own. Things have gotten worse. He put a compression sock o n that was too tight. This caused worsening wound and bleeding. He does have a baseline neuropathy with burning pain and numbness. He does not have any pain beyond his baseline. There has been no fe anjali. PAST MEDICAL HISTORY: 1. Peripheral vascular disease status post recent angioplasty. 2. Coronary artery disease, status post CABG and stents. 3. Systolic congestive heart failure with a recovered ejection fraction, status post biventricular I CD. 4. Atrial fibrillation. 5. Chronic venous stasis wounds. 6. Neuropathy. 7. COPD. 8. Borderline diabetes. MEDICATIONS: Please see computerized record for full detailed list. ALLERGIES: Clindamycin and cephalexin. SOCIAL HISTORY: Five cigarettes per day. Two beers per week. He lives alone in independent living at [place]. 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 Cor status is DNR. REVIEW OF SYSTEMS: Complete review of systems obtained. Review of systems negative for any constitu tional, HEENT, GI, pulmonary, cardiovascular, , hematology, skin, musculoskeletal, endocrine, and p sych, except for positives and negatives as are in HPI. FAMILY HISTORY: Reviewed and noncontributory to presenting complaint. PHYSICAL EXAMINATION: GENERAL: Well-developed, well-nourished male, in no acute distress. VITAL SI GNS: Temperature is 36.8, pulse 70, blood pressure 99/51, saturating 92% on room air. EYES: Normal conjunctivae. Pupils equal, round, and react to light. ENT: Normal ears, nose. Hearing intact. Normal teeth. Oropharynx moist. NECK: Trachea midline. No thyromegaly. CHEST: Normal respiratory effort. Lungs are clear to auscultation bilaterally. CARDIOVASCULAR: Regular rhythm. No murmur. Lower extremity edema, right greater than left, although he does have significant edema on the left lower extremity as well with some chronic venous stasis changes. ABDOMEN: Soft, nontender. No hepa tosplenomegaly. SKIN: Right lower extremity is extremely erythematous, weeping, drainage with some skin breakdown. Erythema extends from the feet all the way to below the knee. MUSCULOSKELETAL: No cyanosis or clubbing. Strength 5/5 upper and lower extremities. NEUROLOGIC: Cranial nerves intact. Normal sensation to light touch. PSYCH ASSESSMENT: Alert and oriented x3. Normal affect. Normal judgment and insight. Normal memory. LABORATORY DATA: White count 12.35, hematocrit 41.6 platelets 221. Sodium 135, potassium 4.3, chlor neetu 100, bicarb 24, BUN 16, creatinine 1.1. Glucose 138. This case was discussed with OLIMPIA Sharma for Dr. Holman regarding direct admission. MEDICAL RECORDS REVIEW: He was just here in May for angioplasty of the right lower extremity. ASSESSMENT AND PLAN: 1. Right lower extremity cellulitis. According to Dr. Adam's last discharge summary, he does hav e a true Keflex allergy. We will, therefore, prescribe intravenous vancomycin. We will get Infectio us Disease to consult. Will check bilateral lower extremity ultrasounds to rule out deep venous thro mbosis. 2. Peripheral vascular disease, status post recent angioplasty. Repeat arterial studies have been o rdered by Dr. Holman. Continue aspirin and Plavix. We will check a lipid panel in the morning. He d oes have a listed statin allergy, although it appears that many of his drug allergies are just intole yash issues. 3. Chronic systolic congestive heart failure status post biventricular implantable cardioverter-defi brillator. Continue enalapril, metoprolol, and Bumex. 4. Coronary artery disease, status post previous coronary artery bypass graft and stents. Treatment for this will also be aspirin and Plavix and lipid optimization. 5. Atrial fibrillation. Continue metoprolol. He does have warfarin and Pradaxa listed on his aller gies. 6. COR STATUS: DNR. ADMISSION STATUS: 1. We will admit to inpatient as he is medically complex and anticipate greater than 2 midnights. 2. DVT prophylaxis. He is high risk. We will place him on subcutaneous Lovenox. /[id number]/MODL
[2018-08-08] MEDS ORDERED: CYANO/VITAMIN B12 1000 MCG TAB PO SCH (09:00)
[2018-08-08] MEDS: METOPROLOL SUCCINATE XR 25 MG TAB PO SCH (09:05)
[2018-08-08] MEDS: ENALAPRIL MALEATE 2.5 MG TAB PO SCH (09:07)
[2018-08-08] MEDS: BUMETANIDE 1 MG TAB PO SCH (09:07)
[2018-08-08] MEDS: ASPIRIN 81 MG CHEWABLE TAB PO SCH ×2 (09:08→20:35)
[2018-08-08] MEDS: CLOPIDOGREL BISULFATE 75 MG TAB PO SCH (09:08)
[2018-08-08] MEDS: EZETIMIBE 10 MG TAB PO SCH (09:08)
[2018-08-08] MEDS: ENOXAPARIN 40 MG/0.4 ML SYR SC SCH (09:13)
[2018-08-08] MEDS: NEOMY SULF/BACITRAC ZN/POLY 30 GM OINTTUBE TP SCH (10:00)
[2018-08-08] MEDS: Umeclidinium Brm/Vilanterol Tr [Anoro Ellipta 62.5-25 Mcg Inh] IH SCH (10:01)
--- NOTE | 2018-08-08 10:49 | HOSPPROG ---
Hospitalist Progress Note Assessment/Plan: #Right lower extremity cellulitis -ID evaluated -change to Unasyn #PVD: recent angioplasty. ASA. Plavix. Has statin-allergy listed -refused arterial studies due to pain -has Dopplerable pulses #Compensated systolic heart failure: s/p Biv pacer #CAD: s/p stents, CABG. ASA, BB. Not on statin #Atrial fib: BB #Leukocytosis: resolved #Diet: regular #DVT ppx: Lovenox Disp: inpatient admission for IV abx Subjective: decreased sensation BL feet. "leg feels warm" Objective: Vital Signs Temp Pulse Resp BP Pulse Ox 36.4 C 76 16 119/67 89 L 08/08/18 07:48 08/08/18 07:48 08/08/18 07:48 08/08/18 07:48 08/08/18 07:48 Laboratory Results 08/08/18 04:46 08/07/18 19:46 08/07/18 08/08/18 08/09/18 05:59 05:59 05:59 Intake Total 250 250 Balance 250 250 - Time Spent With Patient Time Spent with Patient: greater than 35 minutes Time Spent with Patient: Greater than 35 minutes spent on this patients care, greater than 50% of time spent counseling, educating, and coordinating care regarding the above mentioned plan. - Physical Exam Constitutional: no apparent distress Eyes: PERRL Ears, Nose, Mouth, Throat: moist mucous membranes Cardiovascular: regular rate and rhythym Respiratory: no respiratory distress Gastrointestinal: normoactive bowel sounds Genitourinary: No tapia in urethra Musculoskeletal: other (chronic venous stasis BL, bright, angry erythema right leg ) Neurologic: other (right leg with significant redness up to knee. Sloughing of skin. Warm, TTP. Left foot with purplish discoloration, palpable pulse) Psychiatric: interacting appropriately Lymph, Heme, Immunologic: no cervical LAD ICD10 Worksheet Patient Problems: Problems Problem Status Onset CAD - Coronary arteriosclerosis Active Hyperlipidemia Active Smoker Active Bradycardia Active Implantation of intravenous dual chamber permanent pacemaker Active Atrial fibrillation and flutter Active
[2018-08-08] MEDS: VITAMIN B COMPLEX 1 EA CAP/TAB PO SCH (11:57)
[2018-08-08] MEDS: GABAPENTIN 300 MG CAP PO SCH (14:55)
--- NOTE | 2018-08-08 15:18 | WOCRNPDOC ---
WOCRN Advanced Assessment Note - Skin Integrity Problem, Advanced Assess Right Lower Leg Venous Stasis Ulcer Dressing Type: Kerlix, Telfa Dressing Description: Intact, Shadowed Closure Description: Not Approximated Exudate Amount: Moderate Exudate Color: Yellow Exudate Characteristic(s): Serous Integumentary Issue Intervention: Silver Gel Applied, Mechanical Debridement Fifi Wound Tissue: Erythema, Swollen, Weeping, Denuded, Lipodermatosclerosis, Hemosiderin Staining, Venous Dermatitis, Xerotic, Hair Loss, Crusted, Hyperkeratotic Wound Bed Color: [place], Red Wound Bed Constitution: Red/[place] - Non Granular Tissue Wound Edges: Irregular Site Measurement - Head-to-Toe Length X Width X Depth (cm): multiple scattered openings Skin Integrity Problem Comment: Patient's leg and foot first wrapped in warm wet towels to make mechanical debridement easier. Patient didn't tolerate the towel to the foot well so this was removed and the foot was soaked in warm water. Lower leg and foot mechanically debrided to patient's tolerance. Skin of both legs needs moisture but patient claims many allergies. Atrac-Tain cream placed to a small spot above patient's left knee to test for tolerance. Patient stated no reaction after several hours so Atrac-Tain then applied to bilateral lower extremeties by RNs Ethan and Caity. Open areas covered with silvasorb and then telfa and wrapped in Kerlix. Patient tolerated well. Wound care will round again next week.
--- NOTE | 2018-08-08 15:45 | ASMTCMCOM ---
CM Note CM Note Notes: Pt is a 82-year-old male. Pt came to hospital complaining about his right lower extremity cellulitis. CM met with pt. Therapy's recommend HomeCare. Pt reports that he use to work with [facility] and would like to use them again. CM to follow. Plan: [facility] OT/RN Date Signed: 08/08/2018 03:44 PM Electronically Signed By:Heather Leung
--- NOTE | 2018-08-08 15:54 | PDMN ---
Medical Necessity Medical necessity: Pt meets IP criteria per & HECTOR M-70; est los >2 mn for eval/tx of RLE cellulitis; pt non-compliant w/outpatient abx therapy; admit for further workup/monitoring, IV abx & ID/Wound Care consults; multiple comorbidities; per H&P & order 08/07/18
--- NOTE | 2018-08-08 17:50 | SOAPPROG ---
[facility] Progress Note Assessment/Plan: Assessment/plan: 82 y/o M s/p R SFA and L EIA angioplasties 3 months ago. Admitted for wound care and possible cellulitis. PVD. Pt refused arterial studies due to pain. Pt has strong dopplerable pulses. Will hold off on further imaging. Cellulitis. Pt getting iv vanc. Elevate RLE as much as possible. RLE wounds. Daily dressing changes. Appreciate wound care input. S: No complaints. Pain is tolerable. O: Alert Afebrile No increased WOB Abdomen soft, nontender RLE: Wounds stable. Redness and swelling stable. +dopplerable pulses. 08/08/18 17:46 Objective: Vital Signs Temp Pulse Resp BP Pulse Ox 36.8 C 71 16 129/64 H 98 08/08/18 15:40 08/08/18 15:40 08/08/18 15:40 08/08/18 15:40 08/08/18 15:40 Laboratory Results 08/08/18 04:46 08/07/18 19:46 08/07/18 08/08/18 08/09/18 05:59 05:59 05:59 Intake Total 250 250 Balance 250 250 ICD10 Worksheet Patient Problems: Problems Problem Status Onset Atrial fibrillation and flutter Active Bradycardia Active CAD - Coronary arteriosclerosis Active Hyperlipidemia Active Implantation of intravenous dual chamber permanent pacemaker Active Smoker Active
[2018-08-08] MEDS: AMPICILLIN/SULBACTAM 3 GM in NS 100 ML IV SCH (17:53)
--- NOTE | 2018-08-08 19:10 | GCON ---
[f rep st] CONSULTATION DATE OF CONSULTATION: 08/08/2018 REFERRING PHYSICIAN: Jacklyn Mckeon MD REASON FOR CONSULTATION: Right lower extremity cellulitis. HISTORY OF PRESENT ILLNESS: The patient is an 82-year-old male with a past medical history of right lower extremity venous insufficiency and peripheral vascular disease, I am asked to see in consultati on for right lower extremity cellulitis. The patient describes worsening erythema over the last week after being in an Unna boot. He was prescribed doxycycline, but did not take this due to concerns a bout its side-effect profile. He describes having a compression sock that felt tight and was leading to bleeding and worsening lower extremity wounds. He did not note fever, chills or night sweats. G iven those findings, he was seen in followup by Dr. Holman and referred for hospital admission based o n more worsening lower extremity findings and concern for skin and soft tissue infection. Given the above findings, I am now asked to assist in the patient's ongoing management. PAST MEDICAL HISTORY: Peripheral vascular disease requiring angioplasty, coronary artery disease, co ngestive heart failure, atrial fibrillation, chronic venous stasis, neuropathy, COPD. PAST SURGICAL HISTORY: Coronary artery bypass grafting, pacemaker placement. CURRENT MEDICATIONS: Vancomycin 1.25 g IV q.24 hours, aspirin 81 mg p.o. b.i.d., Bumex 1 mg p.o. theresa ly, Plavix 75 mg p.o. daily, Vasotec 2.5 mg p.o. daily, Lovenox 40 mg subcutaneous daily, Zetia 10 mg p.o. daily, Neurontin 300 mg p.o. daily, Toprol-XL 12.5 mg p.o. daily, tramadol as needed, vitamin B orally daily. ALLERGIES: Cephalexin associated with "upper respiratory problems"; further discussion included shor tness of breath. Clindamycin associated with diarrhea and angina. Statins associated with sores in his mouth and liver problems. Patient notes that he has tolerated penicillin in the past. SOCIAL HISTORY: The patient smokes 3 to 4 cigarettes daily. He drinks 2 beers per week. No drug us e. FAMILY HISTORY: Coronary artery disease, stroke. REVIEW OF SYSTEMS: Outside that noted in the HPI, the remainder of 10-system review is unremarkable. PHYSICAL EXAMINATION: VITAL SIGNS: Temperature 36.8, heart rate 71, respiratory rate 16, blood pres sure 129/64, oxygen saturation 98% on room air. GENERAL: The patient is well nourished, well develo ped, in no acute distress. He appears nontoxic. HEENT: There is no scleral icterus, conjunctival i njection, or conjunctival petechiae. Oropharynx shows moist mucous membranes with dentition in poor repair. No thrush. No nasal discharge. NECK: Supple without palpable lymphadenopathy or thyromega ly. CHEST: Clear to auscultation bilaterally except for occasional expiratory wheezes. Respiratory effort is normal. CARDIOVASCULAR: Regular rate and rhythm without murmurs, gallops, or rubs. ABDO MEN: Soft, nontender and nondistended. There is no palpable organomegaly. There is a prominent marya tral hernia present. MUSCULOSKELETAL: Right lower extremity shows 2 to 3+ edema from the knee throu gh the foot. There is circumferential erythema from below the knee through the foot. There is incre ased erythema over the foot with scabbing and some yellow, nonpurulent drainage present; warmth and t enderness are present; edema of the toes is present throughout. SKIN: See musculoskeletal exam. No stigmata of endocarditis. Skin is warm and dry to touch. NEUROLOGIC: The patient is alert, intera cts appropriate with examiner. Cranial nerves 2-12 are grossly intact. LYMPHATICS: No cervical or supraclavicular nodes. No right lower extremity lymphangitis. LABORATORY DATA: White blood cell count at time of presentation 12.4, hematocrit 41.6, platelets 221 , neutrophils 80%; white blood cell count today 8.4, neutrophils 71%. Serum creatinine 1.1. Blood c ultures x2 sets are pending. Ultrasound of the right lower extremity shows no evidence of DVT or flu id collection. IMPRESSION: Right lower extremity venous insufficiency with mild superimposed cellulitis: Suspect m ajority of findings are related to venous stasis dermatitis/venous insufficiency with some cellulitis present over the foot. Most likely, this will be due to beta-hemolytic streptococci or Staphylococc us aureus. Other pathogens are of consideration given chronic venous insufficiency. The patient sta hubert he has tolerated penicillin derivatives in the past (in the setting of cephalexin allergy). Ther efore, will transition vancomycin to Unasyn 3 g IV q.8 hours. Discussed with patient approximately 1 0% risk of cross-reactivity with cephalosporins. Favor this approach over vancomycin given risk of n ephrotoxicity with vancomycin. RECOMMENDATIONS: 1. Unasyn 3 g IV q.8 hours. 2. Discontinue vancomycin. 3. Elevate right lower extremity. 4. Continue local wound care including compression to right lower extremity. Thank you for this consultation. We will continue to follow the patient with you. /[id number]/MODL
[2018-08-08] MEDS ORDERED: VANCOMYCIN 1.25 GM in NS 250 ML IV SCH (20:00)
[2018-08-09] MEDS: AMPICILLIN/SULBACTAM 3 GM in NS 100 ML IV SCH ×3 (01:49→17:33)
[2018-08-09] MEDS: Umeclidinium Brm/Vilanterol Tr [Anoro Ellipta 62.5-25 Mcg Inh] IH SCH (08:10)
[2018-08-09] MEDS: ENALAPRIL MALEATE 2.5 MG TAB PO SCH (08:11)
[2018-08-09] MEDS: ENOXAPARIN 40 MG/0.4 ML SYR SC SCH ×2 (08:11→08:20)
[2018-08-09] MEDS: METOPROLOL SUCCINATE XR 25 MG TAB PO SCH (08:12)
[2018-08-09] MEDS: VITAMIN B COMPLEX 1 EA CAP/TAB PO SCH (08:12)
[2018-08-09] MEDS: CLOPIDOGREL BISULFATE 75 MG TAB PO SCH (08:12)
[2018-08-09] MEDS: BUMETANIDE 1 MG TAB PO SCH (08:13)
[2018-08-09] MEDS: GABAPENTIN 300 MG CAP PO SCH (08:13)
[2018-08-09] MEDS: EZETIMIBE 10 MG TAB PO SCH (08:13)
[2018-08-09] MEDS: ASPIRIN 81 MG CHEWABLE TAB PO SCH ×2 (08:13→20:02)
--- NOTE | 2018-08-09 08:47 | SOAPPROG ---
[facility] Progress Note Assessment/Plan: Assessment/plan: 82 y/o M s/p R SFA and L EIA angioplasties 3 months ago. Admitted for wound care and possible cellulitis. PVD. Pt refused arterial studies due to pain. Pt has strong dopplerable pulses. Will hold off on further imaging. Cellulitis. Pt switched to iv unasyn. RLE wounds. Daily dressing changes. Appreciate wound care input. S: No complaints. Pain is tolerable. O: Alert Afebrile No increased WOB Abdomen soft, nontender RLE: Venous stasis ulcers present throughout calf and cates. Serous drainage. + dopplerable pulses. 2+ edema throughout. 08/09/18 08:45 Objective: Vital Signs Temp Pulse Resp BP Pulse Ox 36.5 C 74 13 137/75 H 90 L 08/09/18 07:22 08/09/18 08:12 08/09/18 07:22 08/09/18 08:12 08/09/18 07:22 Laboratory Results 08/08/18 04:46 08/07/18 19:46 08/08/18 08/09/18 08/10/18 05:59 05:59 05:59 Intake Total 250 750 Balance 250 750 ICD10 Worksheet Patient Problems: Problems Problem Status Onset Atrial fibrillation and flutter Active Bradycardia Active CAD - Coronary arteriosclerosis Active Hyperlipidemia Active Implantation of intravenous dual chamber permanent pacemaker Active Smoker Active
[2018-08-09] MEDS: NEOMY SULF/BACITRAC ZN/POLY 30 GM OINTTUBE TP SCH (10:01)
--- NOTE | 2018-08-09 10:54 | HOSPPROG ---
Hospitalist Progress Note Assessment/Plan: #Right lower extremity cellulitis -ID evaluated -Cont IV Unasyn and await improvement in erythema. Augmentin at DC #PVD: s/p R SFA and L EIA angioplasties 3 months ago. ASA. Plavix. Has statin- allergy listed -refused arterial studies due to pain -has Dopplerable pulses #Compensated systolic heart failure: s/p Biv pacer -Bumex, BB #CAD: s/p stents, CABG. ASA, BB. Not on statin #Atrial fib: BB #Leukocytosis: resolved #Diet: regular #DVT ppx: Lovenox Disp: inpatient admission for IV abx Subjective: no acute events Objective: Vital Signs Temp Pulse Resp BP Pulse Ox 36.5 C 74 13 137/75 H 90 L 08/09/18 07:22 08/09/18 08:12 08/09/18 07:22 08/09/18 08:12 08/09/18 07:22 Laboratory Results 08/08/18 04:46 08/07/18 19:46 08/08/18 08/09/18 08/10/18 05:59 05:59 05:59 Intake Total 250 750 Balance 250 750 - Time Spent With Patient Time Spent with Patient: greater than 35 minutes Time Spent with Patient: Greater than 35 minutes spent on this patients care, greater than 50% of time spent counseling, educating, and coordinating care regarding the above mentioned plan. - Physical Exam Constitutional: no apparent distress Eyes: PERRL Ears, Nose, Mouth, Throat: moist mucous membranes Cardiovascular: regular rate and rhythym Gastrointestinal: other (right abdominal hematoma) Skin: other (right foot/ankle dressed. Bloody drainage dorsal aspect dressing) Musculoskeletal: full muscle strength Neurologic: AAOx3 Psychiatric: interacting appropriately ICD10 Worksheet Patient Problems: Problems Problem Status Onset Atrial fibrillation and flutter Active Bradycardia Active CAD - Coronary arteriosclerosis Active Hyperlipidemia Active Implantation of intravenous dual chamber permanent pacemaker Active Smoker Active
--- NOTE | 2018-08-09 12:05 | PCMIDPN ---
Assessment/Plan: Assessment: 82-year-old man with right lower extremity venous stasis ulcerations with superimposed bacterial infection. Essentially stable since changing from vancomycin to ampicillin/sulbactam yesterday. He has had no side effects from the antibiotics which. It is too early to determine if there is a noticeable effect related to the change which will be better able to be delineated with another 24 hr of this agent. 1. Right lower extremity cellulitis complicating chronic venous stasis ulcerations 2. Right lower extremity chronic lymphedema 3. Peripheral vascular disease predisposing to 1. And 2. 4. Status post right SFA and EIA angioplasties, 05/16/2018 5. Status post SFA stent and right iliac stent placement Plan: 1. Continue Unasyn 2. Anticipate oral transition to Augmentin pending continued tolerance of Unasyn and improvement or at least ability of right lower extremity erythema 3. Reviewed in detail potential side effects of beta-lactam antibiotics to include: allergy, rash, nausea, antibiotic-associated diarrhea, Clostridioides difficile colitis. Cooper Burch MD Infectious Diseases 08/09/18 11:58 Subjective: No fever or chills in the past 24-hours. Tolerating oral diet with solids and liquids. No diarrhea, nausea, or other GI symptoms. No new rash and no worsening of right lower extremity rash. Appetite improving. Improved since admission but not back to baseline health. Objective: Vital Signs Temp Pulse Resp BP Pulse Ox 36.6 C 75 18 138/65 H 93 08/09/18 11:22 08/09/18 11:22 08/09/18 11:22 08/09/18 11:22 08/09/18 11:22 Laboratory Results 08/08/18 04:46 08/08/18 08/09/18 08/10/18 05:59 05:59 05:59 Intake Total 250 750 Balance 250 750 Ongoing monitoring for antimicrobial toxicity with: CBC, BMP, interval historical information, and interval physical exam. Discussed treatment/diagnostic testing and testing results with admitting provider(s). Personally reviewed interval laboratory results. - Physical Exam General Appearance: no apparent distress, non-toxic EENT: No scleral icterus Respiratory: No respiratory distress, No accessory muscle use Neck: full range of motion, supple Skin: other (Did not take down right lower extremity dressing completely, retracted the overlying Favian wrap to the mid portion of the cates with confluent erythema present; left foot swollen with mild erythema) Neuro/Psych: alert, normal mood/affect, oriented x 3, No confused ICD10 Worksheet Patient Problems: Problems Problem Status Onset Atrial fibrillation and flutter Active Bradycardia Active CAD - Coronary arteriosclerosis Active Hyperlipidemia Active Implantation of intravenous dual chamber permanent pacemaker Active Smoker Active
[2018-08-10] MEDS: AMPICILLIN/SULBACTAM 3 GM in NS 100 ML IV SCH ×3 (01:09→17:56)
--- NOTE | 2018-08-10 08:33 | SOAPPROG ---
SOAP Progress Note Assessment/Plan: Assessment: COMFORTABLE TODAY/AFEBRILE/VITAL SIGNS STABLE DRESSINGS INTACT IN CELLULITIS DECREASING AMBULATING WELL CHEST CLEAR COR REGULAR RHYTHM EXTREMITIES POSITIVE PULSES PATIENT REFUSING LOVENOX INJECTION Plan: CONTINUE DRESSING CHANGES AND ANTIBIOTICS 08/10/18 08:32 Objective: Vital Signs Temp Pulse Resp BP Pulse Ox 36.4 C 72 16 126/66 H 90 L 08/10/18 07:51 08/10/18 07:51 08/10/18 07:51 08/10/18 07:51 08/10/18 07:51 Laboratory Results 08/08/18 04:46 08/09/18 11:34 08/09/18 08/10/18 08/11/18 05:59 05:59 05:59 Intake Total 750 550 Balance 750 550 ICD10 Worksheet Patient Problems: Problems Problem Status Onset Atrial fibrillation and flutter Active Bradycardia Active CAD - Coronary arteriosclerosis Active Hyperlipidemia Active Implantation of intravenous dual chamber permanent pacemaker Active Smoker Active
[2018-08-10] MEDS: EZETIMIBE 10 MG TAB PO SCH (08:34)
[2018-08-10] MEDS: ENALAPRIL MALEATE 2.5 MG TAB PO SCH (08:34)
[2018-08-10] MEDS: BUMETANIDE 1 MG TAB PO SCH (08:34)
[2018-08-10] MEDS: ENOXAPARIN 40 MG/0.4 ML SYR SC SCH (08:34)
[2018-08-10] MEDS: GABAPENTIN 300 MG CAP PO SCH (08:34)
[2018-08-10] MEDS: CLOPIDOGREL BISULFATE 75 MG TAB PO SCH (08:34)
[2018-08-10] MEDS: ASPIRIN 81 MG CHEWABLE TAB PO SCH ×2 (08:34→22:35)
[2018-08-10] MEDS: VITAMIN B COMPLEX 1 EA CAP/TAB PO SCH (08:34)
[2018-08-10] MEDS: METOPROLOL SUCCINATE XR 25 MG TAB PO SCH (08:35)
[2018-08-10] MEDS: Umeclidinium Brm/Vilanterol Tr [Anoro Ellipta 62.5-25 Mcg Inh] IH SCH (08:45)
--- NOTE | 2018-08-10 10:44 | HOSPPROG ---
Hospitalist Progress Note Assessment/Plan: #Right lower extremity cellulitis -suspect redness due more to venous stasis than infection -Cont IV Unasyn, Augmentin at DC. D/wDr. Humberto #PVD: s/p R SFA and L EIA angioplasties 3 months ago. ASA. Plavix. Has statin- allergy listed -refused arterial studies due to pain -has Dopplerable pulses #Compensated systolic heart failure: s/p Biv pacer -Bumex, BB #CAD: s/p stents, CABG. ASA, BB. Not on statin #Atrial fib: BB #Leukocytosis: resolved #Diet: regular #DVT ppx: refusing Lovenox; understands risk of thromboses Disp: inpatient admission for IV abx Subjective: pain in leg/foot with unwrapping Objective: Vital Signs Temp Pulse Resp BP Pulse Ox 36.4 C 72 16 126/66 H 90 L 08/10/18 07:51 08/10/18 08:35 08/10/18 07:51 08/10/18 08:35 08/10/18 07:51 Laboratory Results 08/08/18 04:46 08/09/18 11:34 08/09/18 08/10/18 08/11/18 05:59 05:59 05:59 Intake Total 750 550 Balance 750 550 - Time Spent With Patient Time Spent with Patient: greater than 35 minutes Time Spent with Patient: Greater than 35 minutes spent on this patients care, greater than 50% of time spent counseling, educating, and coordinating care regarding the above mentioned plan. - Physical Exam Constitutional: no apparent distress Eyes: PERRL Ears, Nose, Mouth, Throat: moist mucous membranes Cardiovascular: regular rate and rhythym Respiratory: reduced air movement Gastrointestinal: normoactive bowel sounds Genitourinary: No tapia in urethra Musculoskeletal: other (right leg significantly less swollen. Sloughing of skin. Still very red) Neurologic: AAOx3, CN II-XII Intact Psychiatric: interacting appropriately ICD10 Worksheet Patient Problems: Problems Problem Status Onset Atrial fibrillation and flutter Active Bradycardia Active CAD - Coronary arteriosclerosis Active Hyperlipidemia Active Implantation of intravenous dual chamber permanent pacemaker Active Smoker Active
--- NOTE | 2018-08-10 11:25 | ASMTCMCOM ---
CM Note CM Note Notes: CM met with RN and reviewed pt's chart. RN reports that pt continues to be getting wound care and IV antibiotics. Pt is set up with [facility] when he returns home. No further CM needs at this time. Plan: [facility] OT/RN Date Signed: 08/10/2018 11:23 AM Electronically Signed By:Heather Leung
[2018-08-10] MEDS: NEOMY SULF/BACITRAC ZN/POLY 30 GM OINTTUBE TP SCH (11:48)
--- NOTE | 2018-08-10 12:52 | PCMIDPN ---
Assessment/Plan: Assessment/Plan: * Right lower extremity cellulitis superimposed on chronic venous insufficiency/ stasis dermatitis: No significant interval change since initiation of antibiotics. Suspect majority of findings are related to venous insufficiency. Will continue Unasyn to see if assist with decreasing drainage or intensity of erythema. Continue local wound care and compression. Care coordinated with patient and Dr. Bhandari today. 08/10/18 12:50 Subjective: Patient without interval changes in right lower extremity pain and redness. Tolerating Unasyn without rash or diarrhea. Objective: Vital Signs Temp Pulse Resp BP Pulse Ox 36.7 C 71 16 118/70 93 08/10/18 12:45 08/10/18 12:45 08/10/18 12:45 08/10/18 12:45 08/10/18 12:45 Laboratory Results 08/08/18 04:46 08/09/18 11:34 08/09/18 08/10/18 08/11/18 05:59 05:59 05:59 Intake Total 750 550 Balance 750 550 Unasyn # 2 Blood cultures x2 no growth - Physical Exam General Appearance: alert, no apparent distress EENT: No scleral icterus, No thrush Extremities: inflammation (No significant change in right lower extremity erythema with decreased edema being present; remains with serous drainage from ulcerations with some fibrinous debris present) Abdomen: non-tender, No distended Skin: other (Large ecchymosis over abdominal wall) ICD10 Worksheet Patient Problems: Problems Problem Status Onset Atrial fibrillation and flutter Active Bradycardia Active CAD - Coronary arteriosclerosis Active Hyperlipidemia Active Implantation of intravenous dual chamber permanent pacemaker Active Smoker Active
[2018-08-11] MEDS: AMPICILLIN/SULBACTAM 3 GM in NS 100 ML IV SCH ×3 (02:03→11:10)
[2018-08-11 08:14] VITALS: BP 134/63
[2018-08-11] MEDS: Umeclidinium Brm/Vilanterol Tr [Anoro Ellipta 62.5-25 Mcg Inh] IH SCH (08:56)
[2018-08-11] MEDS: METOPROLOL SUCCINATE XR 25 MG TAB PO SCH (09:00)
[2018-08-11] MEDS: ENALAPRIL MALEATE 2.5 MG TAB PO SCH (09:01)
[2018-08-11] MEDS: BUMETANIDE 1 MG TAB PO SCH (09:02)
[2018-08-11] MEDS: CLOPIDOGREL BISULFATE 75 MG TAB PO SCH (09:02)
[2018-08-11] MEDS: GABAPENTIN 300 MG CAP PO SCH (09:02)
[2018-08-11] MEDS: ENOXAPARIN 40 MG/0.4 ML SYR SC SCH (09:02)
[2018-08-11] MEDS: VITAMIN B COMPLEX 1 EA CAP/TAB PO SCH (09:02)
[2018-08-11] MEDS: ASPIRIN 81 MG CHEWABLE TAB PO SCH (09:02)
[2018-08-11] MEDS: EZETIMIBE 10 MG TAB PO SCH (09:02)
--- NOTE | 2018-08-11 10:40 | PCMIDPN ---
Assessment/Plan: Assessment/Plan: * Right lower extremity cellulitis superimposed on chronic venous insufficiency/ stasis dermatitis: Clinically improved today with suspicion that residual findings largely related to venous insufficiency. Will transition Unasyn to Augmentin x7 days in total. Continue ongoing wound care and further vascular evaluation as directed by Dr. Holman. Lower extremity elevation periodically to assist with venous return. 08/11/18 10:37 Subjective: Patient without specific complaints other than has lost IV access. No rash or diarrhea. Objective: Vital Signs Temp Pulse Resp BP Pulse Ox 36.5 C 73 19 134/63 H 91 L 08/11/18 08:07 08/11/18 09:00 08/11/18 08:07 08/11/18 09:01 08/11/18 08:07 Laboratory Results 08/08/18 04:46 08/09/18 11:34 08/10/18 08/11/18 08/12/18 05:59 05:59 05:59 Intake Total 550 550 Balance 550 550 Unasyn # 3 Blood cultures x2 no growth - Physical Exam General Appearance: alert, no apparent distress EENT: No scleral icterus, No thrush Extremities: inflammation (Right lower extremity with decreased intensity of erythema; remains edematous over dorsal aspect of foot with continued serous drainage; no purulent drainage present, minimal warmth and nontender to palpation) Skin: rash (Small patch of irritant erythema medial right thigh) Lymphatic: other (No lymphangitis right thigh) ICD10 Worksheet Patient Problems: Problems Problem Status Onset Atrial fibrillation and flutter Active Bradycardia Active CAD - Coronary arteriosclerosis Active Hyperlipidemia Active Implantation of intravenous dual chamber permanent pacemaker Active Smoker Active
[2018-08-11] MEDS ORDERED: AMOXICILLIN/CLAVULANATE POT 875/125 MG TAB PO SCH (10:45)
[2018-08-11] MEDS: NEOMY SULF/BACITRAC ZN/POLY 30 GM OINTTUBE TP SCH (11:10)
--- NOTE | 2018-08-11 11:22 | PDIAF ---
- Diagnosis Diagnosis: right leg cellulitis Code Status: Do Not Resuscitate - Medication Management Discharge Medications: electronically signed and located in the Home Medication List. - Orders Services needed: Home Care, Registered Nurse Home Care Face to Face: I certify that this patient was under my care and that I had the required [id number] encounter meeting the encounter requirements on the discharge day. My findings support the fact that the patient is homebound as defined in Home Care Face to Face Continued: CMS Chapter 7 Medicare Benefits Manual 30.1.1 , The condition of the patient is such that there exists a normal inability to leave home and consequently, leaving home would require a considerable and taxing effort. Diet Recommendation: cardiac -low fat low salt Diet Texture: Regular Texture Diet Wound Care Instructions: Please change dressing daily. Neosporin, telfa, kerlix and edel wrap Additional Instructions: Wound Care: Apply lotion to bilateral lower legs (except to open areas) once or twice daily. Change dressings to right lower leg daily and as needed 1. Clean with NS and gauze 2. Silvasorb gel to open areas 3. Cover open areas with telfa 4. Wrap with Kerlix. May secure with tape or netting per patient preference. [facility] They can also assist in finding compression for your lower legs. You can make an appointment by calling [phone]. Lianet Larkin RN, Wound Care Team - Follow Up Care Current Providers and Referrals: Patient,NotPresent [Primary Care Provider] -
--- NOTE | 2018-08-11 11:38 | ASMTLACE ---
LACE Length of stay for Answers: 3 days current admission Comorbidities - select Answers: Chronic pulmonary disease all that apply Congestive heart failure Coronary Artery Disease Diabetes (uncontrolled or controlled) Opioid dependence / Chronic pain Peripheral vascular disease Previous myocardial infarction Other Notes: AFib; Neuropathy # of Emergency department Answers: 0 visits in the last 6 months Score: 17 Date Signed: 08/11/2018 11:37 AM Electronically Signed By:Mikaela Brown RN
--- NOTE | 2018-08-11 13:36 | SOAPPROG ---
SOAP Progress Note Assessment/Plan: Assessment: COMFORTABLE TODAY/AFEBRILE/VITAL SIGNS STABLE DRESSINGS INTACT IN CELLULITIS DECREASING AMBULATING WELL CHEST CLEAR COR REGULAR RHYTHM EXTREMITIES POSITIVE PULSES PATIENT REFUSING LOVENOX INJECTION Plan: CONTINUE DRESSING CHANGES AND ANTIBIOTICS 08/10/18 08:32 08/11/18 13:35 WOUNDS STABLE/ HOME TODAAY/ FU IN OFFICE Objective: Vital Signs Temp Pulse Resp BP Pulse Ox 36.5 C 73 19 134/63 H 91 L 08/11/18 08:07 08/11/18 09:00 08/11/18 08:07 08/11/18 09:01 08/11/18 08:07 Laboratory Results 08/08/18 04:46 08/09/18 11:34 08/10/18 08/11/18 08/12/18 05:59 05:59 05:59 Intake Total 550 550 Balance 550 550 ICD10 Worksheet Patient Problems: Problems Problem Status Onset Atrial fibrillation and flutter Active Bradycardia Active CAD - Coronary arteriosclerosis Active Hyperlipidemia Active Implantation of intravenous dual chamber permanent pacemaker Active Smoker Active
--- NOTE | 2018-08-11 17:09 | GDS ---
[f rep st] DISCHARGE SUMMARY DISCHARGE DIAGNOSES: 1. Right lower extremity cellulitis superimposed on chronic venous insufficiency/stasis dermatitis. 2. Peripheral vascular disease with RSFA and L-EIA angioplasty 3 months ago. 3. Compensated systolic heart failure with a bi-V pacer. 4. Coronary artery disease. 5. Atrial fibrillation. 6. Leukocytosis. CONSULTATIONS: Surgery, Infectious Disease. HISTORY OF PRESENT ILLNESS: An 82-year-old male with peripheral vascular disease with recent angioplasty of right leg, atrial fibrillation, compensated systolic heart failure, who is being admitted from Dr. Holman' office with cellulitis. He noted increased swelling and redness over the last 9 days. He was prescribed doxycycline by Dr. Holman, but the patient was scared of potential side effects, so did not take. HOSPITAL COURSE BY PROBLEM: 1. Right lower extremity cellulitis superimposed on chronic venous insufficiency/stasis dermatitis: IV Unasyn and transitioned to Augmentin. Suspect most sxs related to chronic venous stasis and swelling. DC with wound care. Follow up with Dr. Holman. 2. Peripheral vascular disease: s/pt RSFA and L-EIA angioplasties 3 months ago. Aspirin, Plavix. He has a statin allergy. 3. Compensated systolic heart failure: Has a bi-V pacer. Bumex, beta philip. 4. CAD status post stents, CABG: Continue aspirin, beta philip. He is not on statin due to allergies. 5. Atrial fibrillation: Beta philip. 6. Leukocytosis, resolved. DISPOSITION: The patient is stable for discharge home with home care. NEW MEDICATIONS: Augmentin for 7 days. FOLLOWUP: Dr. Holman. PHYSICAL EXAMINATION: VITAL SIGNS: Today temperature 36.5, blood pressure 134/ 63, heart rate in the 70s, respirations 18, 91% on room air. GENERAL: No acute distress. HEENT: PERRLA. Moist mucous membranes. CV: Regular rate and rhythm. LUNGS: Clear. ABDOMEN: Soft, nontender. : No [place]. MUSCULOSKELETAL: Right leg with significantly less swelling. Erythema has improved. Has sloughing of the skin. No overt purulence. NEURO: 2 through 12 intact. PSYCH: Alert and oriented x3. TIME SPENT ON DISCHARGE: Greater than 30 minutes. Case discussed with Dr. Holman and Dr. Paul. /[id number]/MODL MTDD
--- NOTE | 2018-08-12 10:02 | ASDISCHSUM ---
Discharge Information Plan Status: Medically Cleared to Leave: Discharge Date:08/11/2018 02:10 PM CM D/C Disposition: [facility] D/C Disposition:[id number] Projected Discharge Date:08/12/2018 11:00 AM Transportation at D/C: Discharge Delay Reason: Follow-Up Date:08/12/2018 11:00 AM Discharge Slot: Final Diagnosis: Placement Information Referral Type:*Home Health Care Services Referral ID:[id number] Provider Name:[facility] Address 1:[address] [facility] Phone Number: Address 2: Fax Number: [facility]:[place] Selection Factors: State:[place] Patient Contact Information Contact Name:HOLLEY Relationship:Daughter Address:[address] City:[place] Alternate Phone: State/Zip Code:[place] [address] Email: Financial Information Financial Class:Medicare Primary Plan Desc:MEDICARE INPATIENT Primary Plan Number:[id number] Secondary Plan Desc:DONAL Secondary Plan Number:[id number] Assessment Information LACE LACE Length of stay for Answers: 3 days current admission Comorbidities - select Answers: Chronic pulmonary disease all that apply Congestive heart failure Coronary Artery Disease Diabetes (uncontrolled or controlled) Opioid dependence / Chronic pain Peripheral vascular disease Previous myocardial infarction Other Notes: AFib; Neuropathy # of Emergency department Answers: 0 visits in the last 6 months Score: 17 Date Signed: 08/11/2018 11:37 AM Electronically Signed By:Mikaela Brown RN [facility] CM Progress Note CM Note CM Note Notes: Pt is a 82-year-old male. Pt came to hospital complaining about his right lower extremity cellulitis. CM met with pt. Therapy's recommend HomeCare. Pt reports that he use to work with [facility] and would like to use them again. CM to follow. [facility] Date Signed: 08/08/2018 03:44 PM Electronically Signed By:Heather Leung [facility] CM Progress Note CM Note CM Note Notes: CM met with RN and reviewed pt's chart. RN reports that pt continues to be getting wound care and IV antibiotics. Pt is set up with [facility] when he returns home. No further CM needs at this time. [facility] Date Signed: 08/10/2018 11:23 AM Electronically Signed By:Heather Leung Intervention Information Intervention Type:*Incorrect Registration Date of Service:08/07/2018 11:03 AM Patient Type:Observation Staff Member:CATRACHO Perez, Odalis Hours: Discipline: Severity: Comment: Intervention Type:*IM-Signed Date of Service:08/09/2018 03:00 PM Patient Type:Inpatient Staff Member:Berkley Regalado Hours: Discipline: Severity: Comment:
== END 2018-08-11 14:10 | disposition home health service (06) | DRG 603 ==
LOC: F1N 17:57 → OBSVTOIN 18:17
PROVIDERS: ADMIT Internal Medicine; ATTEND Internal Medicine
DX: L03.115 Cellulitis of right lower limb (principal); I87.2 Venous insufficiency (chronic) (peripheral); I73.9 Peripheral vascular disease, unspecified; I25.10 Atherosclerotic heart disease of native coronary artery without angina pectoris; I50.22 Chronic systolic (congestive) heart failure; I48.91 Unspecified atrial fibrillation; J44.9 Chronic obstructive pulmonary disease, unspecified; R73.03 Prediabetes; F17.210 Nicotine dependence, cigarettes, uncomplicated; Z95.1 Presence of aortocoronary bypass graft; Z95.0 Presence of cardiac pacemaker; Z95.5 Presence of coronary angioplasty implant and graft; Z66 Do not resuscitate
CPT/HCPCS: 97161-GP; 97166-GO; 97530-GO; J0295; J1650; J3370